=== PATIENT | female | born 1980 | race American Indian/Alaskan Native ===

== ENCOUNTER 2017-01-02 09:42 | Outpatient (CLI) | payer BC ==
--- NOTE | 2017-01-02 10:30 | XRay Report ---
Right hip: Pain. AP and lateral projections demonstrates a small spur at the inferior femoral head. With this exception the bone and soft tissue findings appear unremarkable. The joint spaces well-preserved and symmetric bilaterally. There is good positioning of the femoral head. The bones are well-mineralized. Of incidental note is the presence of an IUD in the central pelvis. 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
== END 2017-01-02 09:43 | disposition home or self-care (01) ==
LOC: XRAY 09:42
PROVIDERS: ATTEND Orthopaedic Surgery
DX: M16.11 Unilateral primary osteoarthritis, right hip (principal); Z97.5 Presence of (intrauterine) contraceptive device

== ENCOUNTER 2017-01-20 09:36 | Outpatient (CLI) | payer BC ==
--- NOTE | 2017-01-23 08:21 | Magnetic Resonance Report ---
MR LOWER EXTREMITY JOINT RIGHT WITHOUT CONTRAST: HISTORY: Right hip pain. TECHNIQUE: Multisequence, multiplanar MRI without IV gadolinium. COMPARISON: Right hip films dated 02/02/17. FINDINGS: There is normal bone marrow signal throughout the visualized lumbar spine, pelvis and proximal femurs. There is no evidence for fracture, femoral head edema, bone lesion or osteonecrosis. Minimal osteoarthritic changes are noted at both hips which appears symmetric. MR arthrogram was not performed but no gross labral defect or large tear is suspected. No significant joint effusion in either hip. The para-articular musculature and tendinous insertions are within normal limits. A 7 mm ganglion cyst versus trace bursal fluid is noted just inferior to the medial wall the right acetabulum. This is likely an incidental finding. IMPRESSION: Minimal osteoarthritic changes. No evidence for fracture, bone lesion or osteonecrosis.
== END 2017-01-20 09:37 | disposition home or self-care (01) ==
LOC: MRI 09:36
PROVIDERS: ATTEND Orthopaedic Surgery
DX: M16.0 Bilateral primary osteoarthritis of hip (principal)
CPT/HCPCS: 73721